=== PATIENT | male | born 1960 | race Caucasian/White ===

== ENCOUNTER → 2017-01-10 | Outpatient (CLI) | payer BC ==
--- NOTE | 2017-01-10 11:45 | DIAGNOSTIC IMAGING REPORT ---
CHEST 2 VIEWS ROUTINE CLINICAL HISTORY: I49.9 ARRHYTHMIA COMPARISON STUDY: No previous studies for comparison. FINDINGS: The cardiac and mediastinal contours are normal. There is no evidence of focal pulmonary consolidation. There is no evidence of failure. No pleural effusions are visualized.[ IMPRESSION: No active disease in the chest. Electronically signed by: Valdez Reyez M.D. 01/10/2017 11:43 AM Dictated Date/Time: 01/10/2017 11:43 AM
== END | disposition home or self-care (01) ==
LOC: C.RAD1850 11:02
PROVIDERS: ATTEND Family Medicine
DX: I49.9 Cardiac arrhythmia, unspecified (principal)

== ENCOUNTER 2017-01-16 21:03 | Emergency (ER) | payer BC ==
[~2017-01-16] VITALS: Ht 182.9 cm; Wt 96.4 kg
[2017-01-16 21:05] VITALS: TEMP 36.7; Ht 182.9 cm; Wt 96.4 kg
[2017-01-16 21:12] VITALS: O2SAT 98
[2017-01-16] MEDS ORDERED: ADENOSINE IV SOLN 3 MG/ML 2 ML VIAL ONE (21:17)
[2017-01-16] MEDS ORDERED: METOPROLOL TARTRATE 1 MG/ML VIAL IV STA (21:22)
[2017-01-16] MEDS ORDERED: SODIUM CHLORIDE 0.9% 1000ML 1,000 ML IV STA (21:29)
[2017-01-16 21:34] LABS: BASO % 0.3 %; BASO ABS # 0.03 K/uL (0-0.2); COMPLETE YES; EOS % 2.8 %; HEMATOCRIT 47.2 % (42-52); IG% 0.2 %; LYMPH % 28.2 %; LYMPH ABS # 2.74 K/uL (1.2-3.4); MEAN CELL VOLUME 91.1 fL (80-100); MEAN CORPUSCULAR HEMOGLOBIN 31.3 pg (25-34); MEAN CORPUSCULAR HGB CONC 34.3 g/dl (32-36); MEAN PLATELET VOLUME 9.1 fL (7.4-10.4); MONO % 9.8 %; NEUT % 58.7 %; PLATELET COUNT 229 K/uL (130-400); RED BLOOD COUNT 5.18 M/uL (4.7-6.1); WHITE BLOOD COUNT 9.72 K/uL (4.8-10.8)
--- NOTE | 2017-01-16 21:37 | DIAGNOSTIC IMAGING REPORT ---
CHEST ONE VIEW PORTABLE CLINICAL HISTORY: Fever, sepsis. COMPARISON STUDY: 01/10/2017 FINDINGS: The cardiac and mediastinal contours are normal. There is no evidence of focal pulmonary consolidation. There is no evidence of failure. No pleural effusions are visualized.[ IMPRESSION: No active disease in the chest. Electronically signed by: Valdez Reyez M.D. 01/16/2017 9:36 PM Dictated Date/Time: 01/16/2017 9:35 PM
[2017-01-16 21:40] LABS: PARTIAL THROMBOPLASTIN RATIO 1.1; PROTHROMBIN TIME (PATIENT) 10.7 SECONDS (9.0-12.0)
[2017-01-16 21:41] LABS: ALT/SGPT 38 U/L (12-78); BLOOD UREA NITROGEN 12 mg/dl (7-18); BUN/CREATININE RATIO 13.5 (10-20); CALCIUM 8.9 mg/dl (8.5-10.1); CARBON DIOXIDE 27 mmol/L (21-32); CHLORIDE 105 mmol/L (98-107); CREATININE 0.92 mg/dl (0.60-1.40); GLUCOSE 155 mg/dl (70-99); POTASSIUM 3.7 mmol/L (3.5-5.1); SODIUM 141 mmol/L (136-145)
[2017-01-16] MEDS ORDERED: MULT-1027 PO (21:44)
[2017-01-16 21:51] LABS: ALKALINE PHOSPHATASE 64 U/L (45-117); AST/SGOT 42 U/L (15-37); CKMB/CK RATIO 1.3 (0-3.0)
[2017-01-16 23:00] VITALS: PULSE 96; O2SAT 98
[2017-01-16] MEDS ORDERED: METO25TA56 PO (23:18)
[2017-01-16] MEDS ORDERED: METOPROLOL TARTRATE 50 MG TAB PO STA (23:20)
--- NOTE | 2017-01-16 23:20 | EMERGENCY ROOM VISIT NOTE ---
History Report prepared by Shirleneibraj: Mavis Caputo Under the Supervision of: Dr. Gaston Haney D.O. First contact with patient: 21:16 Chief Complaint: RAPID HEART RATE Stated Complaint: RAPID HEARTRATE History of Present Illness The patient is a 56 year old male who presents to the Emergency Room with complaints of an intermittent rapid heart rate that started last night. The patient states that this has been happening for 30 years but it has been becoming more frequent. He notes that he was experiencing a rapid heart rate 1 week ago that lasted an hour. He reports that is the longest it has ever lasted. He states that his most recent episodes were last night and today but they did not last as long. The patient notes that this often happens once per month but it can sometimes be once every couple of months. The patient denies having any other symptoms. Source of History: patient Onset: last night Position: other (tachycardia) Quality: other (tachycardia) Timing: intermittent Note: The patient denied having any other associated symptoms. Review of Systems See HPI for pertinent positives & negatives. A total of 10 systems reviewed and were otherwise negative. Family History Diabetes mellitus Hypertension Social History Smoking Status: Never Smoker Alcohol Use: occasionally Drug Use: none Marital Status: Housing Status: lives with significant other Occupation Status: employed Current/Historical Medications Scheduled Metoprolol Tartrate (Lopressor) (Lopressor), 1 TAB PO BID Multiple Vitamin (Multi Vitamin), 1 TAB PO DAILY Allergies Coded Allergies: No Known Allergies (Unverified , 01/16/17) Physical Exam Vital Signs Date Time Temp Pulse Resp B/P (MAP) Pulse Ox O2 Delivery O2 Flow Rate FiO2 01/16/17 23:44 132/85 01/16/17 23:00 96 125/88 98 Room Air 01/16/17 22:33 100 113/80 99 Room Air 01/16/17 22:03 101 18/86 98 Room Air 01/16/17 21:37 90 01/16/17 21:30 99 16 137/78 98 Nasal Cannula 3.0 01/16/17 21:26 106 151/101 01/16/17 21:22 123 01/16/17 21:19 195 01/16/17 21:12 98 Nasal Cannula 3.0 01/16/17 21:12 98 Nasal Cannula 3.0 01/16/17 21:05 36.7 124/81 Room Air Physical Exam CONSTITUTIONAL/VITAL SIGNS: Reviewed / noted above. GENERAL: Non-toxic in appearance. INTEGUMENTARY: Warm, dry, and [place]. HEAD: Normocephalic. EYES: without scleral icterus or trauma. ENT/OROPHARYNX: clear and moist. LYMPHADENOPATHY/NECK: Is supple without lymphadenopathy or meningismus. RESPIRATORY: Lungs clear and equal. CARDIOVASCULAR: Tachycardic rate and rhythm. GI/ABDOMEN: Soft and nontender. No organomegaly or pulsatile mass. No rebound or guarding. Normal bowel sounds. EXTREMITIES: Warm and well perfused. BACK: No CVA tenderness. NEUROLOGICAL: Intact without focal deficits. PSYCHIATRIC: normal affect. MUSCULOSKELETAL: Normally developed with good muscle tone. Medical Decision & Procedures ER Provider Diagnostic Interpretation: Radiology results as stated below per my review and radiologist interpretation: CHEST ONE VIEW PORTABLE CLINICAL HISTORY: Fever, sepsis. COMPARISON STUDY: 01/10/2017 FINDINGS: The cardiac and mediastinal contours are normal. There is no evidence of focal pulmonary consolidation. There is no evidence of failure. No pleural effusions are visualized.[ IMPRESSION: No active disease in the chest. Electronically signed by: aVldez Reyez M.D. 01/16/2017 9:36 PM Dictated Date/Time: 01/16/2017 9:35 PM Laboratory Results 01/16/17 21:15 Red Blood Count 5.18, Mean Corpuscular Volume 91.1, Mean Corpuscular Hemoglobin 31.3, Mean Corpuscular Hemoglobin Concent 34.3, Mean Platelet Volume 9.1, Neutrophils (%) (Auto) 58.7, Lymphocytes (%) (Auto) 28.2, Monocytes (%) (Auto) 9.8, Eosinophils (%) (Auto) 2.8, Basophils (%) (Auto) 0.3, Neutrophils # (Auto) 5.71, Lymphocytes # (Auto) 2.74, Monocytes # (Auto) 0.95, Eosinophils # (Auto) 0.27, Basophils # (Auto) 0.03 01/16/17 21:15 Test 01/16/17 21:15 White Blood Count 9.72 K/uL (4.8-10.8) Red Blood Count 5.18 M/uL (4.7-6.1) Hemoglobin 16.2 g/dL (14.0-18.0) Hematocrit 47.2 % (42-52) Mean Corpuscular Volume 91.1 fL (80-100) Mean Corpuscular Hemoglobin 31.3 pg (25-34) Mean Corpuscular Hemoglobin Concent 34.3 g/dl (32-36) Platelet Count 229 K/uL (130-400) Mean Platelet Volume 9.1 fL (7.4-10.4) Neutrophils (%) (Auto) 58.7 % Lymphocytes (%) (Auto) 28.2 % Monocytes (%) (Auto) 9.8 % Eosinophils (%) (Auto) 2.8 % Basophils (%) (Auto) 0.3 % Neutrophils # (Auto) 5.71 K/uL (1.4-6.5) Lymphocytes # (Auto) 2.74 K/uL (1.2-3.4) Monocytes # (Auto) 0.95 K/uL (0.11-0.59) Eosinophils # (Auto) 0.27 K/uL (0-0.5) Basophils # (Auto) 0.03 K/uL (0-0.2) RDW Standard Deviation 43.3 fL (36.4-46.3) RDW Coefficient of Variation 13.1 % (11.5-14.5) Immature Granulocyte % (Auto) 0.2 % Immature Granulocyte # (Auto) 0.02 K/uL (0.00-0.02) Prothrombin Time 10.7 SECONDS (9.0-12.0) Prothromb Time International Ratio 1.0 (0.9-1.1) Activated Partial Thromboplast Time 27.8 SECONDS (21.0-31.0) Partial Thromboplastin Ratio 1.1 Anion Gap 9.0 mmol/L (3-11) Est Creatinine Clear Calc Drug Dose 109.2 ml/min Estimated GFR () 108.1 Estimated GFR (Non- 93.3 BUN/Creatinine Ratio 13.5 (10-20) Calcium Level 8.9 mg/dl (8.5-10.1) Total Bilirubin 1.0 mg/dl (0.2-1) Direct Bilirubin 0.3 mg/dl (0-0.2) Aspartate Amino Transf (AST/SGOT) 42 U/L (15-37) Alanine Aminotransferase (ALT/SGPT) 38 U/L (12-78) Alkaline Phosphatase 64 U/L (45-117) Total Creatine Kinase 226 U/L (39-308) Creatine Kinase MB 2.9 ng/ml (0.5-3.6) Creatine Kinase MB Ratio 1.3 (0-3.0) Troponin I < 0.015 ng/ml (0-0.045) Total Protein 7.3 gm/dl (6.4-8.2) Albumin 3.6 gm/dl (3.4-5.0) Thyroid Stimulating Hormone (TSH) 2.120 uIu/ml (0.300-4.500) Laboratory results as stated above per my review. Medications Administered Medications (Trade) Dose Ordered Sig/Srikanth Route Start Time Stop Time Status Last Admin Dose Admin Adenosine (Adenosine Iv) 6 mg STK-MED ONCE .ROUTE 01/16/17 21:17 01/16/17 21:18 DC 01/16/17 21:21 6 MG Metoprolol Tartrate (Lopressor Iv) 5 mg NOW STAT IV 01/16/17 21:22 01/16/17 21:23 DC 01/16/17 21:26 5 MG Sodium Chloride 1,000 ml @ 999 mls/hr Q1H1M STAT IV 01/16/17 21:29 01/16/17 22:29 DC 01/16/17 21:29 999 MLS/HR Metoprolol Tartrate (Lopressor Tab) 25 mg NOW STAT PO 01/16/17 23:20 01/16/17 23:21 DC 01/16/17 23:30 25 MG ECG Indication: tachycardia Rate (beats per minute): 180 Rhythm: SVT Findings: no acute ischemic change, no ectopy ED Course 2115: Previous medical records were reviewed. The patient was evaluated in room B9. A complete history and physical examination was performed. 2116: Adenosine 6 mg .ROUTE. 2121: Lopressor Iv 5 mg IV. 2128: Sodium Chloride 1000 ml @ 999 mls/hr IV. 0: Lopressor Tab 25 mg PO. 2330: On reevaluation, the patient is resting comfortably. I discussed the results and findings with the patient. He verbalized agreement of the treatment plan. He will be discharged home. Medical Decision the differential was considered includes acute myocardial infarction, acute coronary syndrome, myocarditis, pericarditis, pericardial effusions /tamponad, esophageal perforation, thoracic aortic dissection, pulmonary embolism, pneumonia, pneumothorax, pancreatitis, shingles, acute cholecystitis, perforated abdominal viscus. This is a 56-year-old male who presents to the ED with a chief complaint of supraventricular tachycardia. The patient states that he has had intermittent episodes of this for years but most recently over the past couple of weeks it has become more frequent. The patient presents to the ED with an SVT with a heart rate of about 180. His exam was otherwise unremarkable. CBC, chemistry panel and cardiac enzymes are normal. Chest x-ray is negative for acute disease. Shortly after the patient's arrival, he was converted to a sinus rhythm with 6 mg of IV adenosine. Prior to this Valsalva maneuvers did not help. The patient tried them at home as well. The patient was given 5 g IV Lopressor as well. I spoke with Dr. Teresa who recommended 25 mg of Lopressor twice a day and follow-up with cardiology. He was referred to Dr. Low. Medication Reconcilliation Current Medication List: was personally reviewed by me Blood Pressure Screening Patient's blood pressure: Normal blood pressure Impression Primary Impression: SVT (supraventricular tachycardia) Scribe Attestation The scribe's documentation has been prepared under my direction and personally reviewed by me in its entirety. I confirm that the note above accurately reflects all work, treatment, procedures, and medical decision making performed by me. Departure Information Dispostion Home / Self-Care Prescriptions Metoprolol Tartrate (Lopressor) (Lopressor) 25 Mg Tab 1 TAB PO BID for 30 Days, #60 TAB 5 Refills Prov: Gaston Haney D.O. 01/16/17 Referrals Jasen Berman MD (PCP) Salazar Del Cid M.D. Patient Instructions My [facility] Additional Instructions Lopressor: 25 mg twice a day. Follow-up with cardiology. Call tomorrow for an appointment.
[2017-01-16 23:44] VITALS: BP 132/85
== END 2017-01-16 23:45 | disposition home or self-care (01) ==
LOC: C.EDB 21:04
DX: I47.1 Supraventricular tachycardia (principal); Z83.3 Family history of diabetes mellitus; Z82.49 Family history of ischemic heart disease and other diseases of the circulatory system